=== PATIENT | female | born 1965 | race Caucasian/White ===

== ENCOUNTER → 2017-04-25 | Outpatient (CLI) | payer OTHER ==
[~2017-04-25] MED LIST: ESCI20TA38 PO; MULT-885 PO; PANT40TA65 PO; PER PO; SUCR1TAB85 PO
--- NOTE | 2017-04-28 08:24 | RADIOLOGY IMAGING REPORT ---
FAC[facility] PATIENT NAME: LG AMANDA : [id number] MR: [id number] V: [id number] EXAM DATE: ORDERING PHYSICIAN: CHRISTINE LAZO TECHNOLOGIST: Jewell Baugh PROCEDURE:BILATERAL DIGITAL SCREENING MAMMOGRAM WITH CAD ASSISTED INTERPRETATION AND 3D BREAST TOMOSYNTHESIS. COMPARISON:Prior mammograms dated 04/12/16, 03/21/15, 01/21/14, 09/01/12 and 10/02/10. INDICATIONS:SCREENING FINDINGS: A small amount of fibroglandular tissue is seen throughout the breasts. The parenchymal pattern has remained stable when allowing for difference in mammographic technique and patient positioning. There is no evidence of malignant appearing mass, malignant appearing calcification or other secondary sign of malignancy in either breast. DIAGNOSTIC CATEGORY 1--NEGATIVE. RECOMMENDATIONS: ROUTINE MAMMOGRAM AND CLINICAL EVALUATION. IMPRESSION: Bi-RADS 1: No significant abnormality is seen. Images were reviewed with R2CAD and 3D breast tomosynthesis. Dictated by: Kaya Matos M.D. on 04/25/2017 at 14:30 Transcribed by: VÍCTOR on 04/25/2017 at 16:27 Approved by: Kaya Matos M.D. on 04/28/2017 at 8:23 [facility]
== END ==
LOC: MAMO 03:11
PROVIDERS: ATTEND Obstetrics & Gynecology
DX: Z12.31 Encounter for screening mammogram for malignant neoplasm of breast (principal)
CPT/HCPCS: 77063; 77067